=== PATIENT | male | born 1960 | race Caucasian/White ===

== ENCOUNTER 2019-09-10 08:38 | Outpatient (CLI) | payer OTHER, SELFPAY ==
--- NOTE | 2019-09-10 08:50 | XR_ITS ---
WS: [id number] CERVICAL SPINE TECHNIQUE: 3 views of the cervical spine CLINICAL INFORMATION: ARTHRODESIS STATUS, S/P CERVICAL FUSION COMPARISON: None. FINDINGS: Straightening of the normal cervical lordosis. Postoperative changes anterior interbody cervical fusi on C3-C7. Additional posterior element fusion. XR/XR cervical spine 3V* [id number] IMPRESSION: Normal-appearing postoperative ACDF and posterior element fusion C3-C7
== END 2019-09-10 08:39 | disposition home or self-care (01) ==
LOC: RAD 08:42
PROVIDERS: Family Provider Nurse Practitioner; PCP Family Medicine; Visit Provider Neurological Surgery
DX: Z98.1 Arthrodesis status (principal); M43.22 Fusion of spine, cervical region
CPT/HCPCS: 72040

== ENCOUNTER 2020-08-15 09:14 | Outpatient (CLI) | payer OTHER, SELFPAY | END 2020-08-15 09:15 | disposition home or self-care (01) | LOC: WOUND 09:15 | PROVIDERS: PCP Family Medicine; Visit Provider Nurse Practitioner Family | DX: T25.231A Burn of second degree of right toe(s) (nail), initial encounter (principal); X08.8XXA Exposure to other specified smoke, fire and flames, initial encounter | CPT/HCPCS: 11042; 11045; G0463 ==

== ENCOUNTER 2020-08-22 10:55 | Outpatient (CLI) | payer OTHER, SELFPAY | END 2020-08-22 10:56 | disposition home or self-care (01) | LOC: WOUND 10:55 | PROVIDERS: PCP Family Medicine; Visit Provider Nurse Practitioner Family | DX: T25.231A Burn of second degree of right toe(s) (nail), initial encounter (principal); X08.8XXA Exposure to other specified smoke, fire and flames, initial encounter | CPT/HCPCS: 11042 ==

== ENCOUNTER 2020-08-29 09:33 | Outpatient (CLI) | payer OTHER, SELFPAY | END 2020-08-29 09:34 | disposition home or self-care (01) | LOC: WOUND 09:34 | PROVIDERS: PCP Family Medicine; Visit Provider Nurse Practitioner Family | DX: L97.512 Non-pressure chronic ulcer of other part of right foot with fat layer exposed (principal) | CPT/HCPCS: 11042; 87070; 87075; 87205 ==

== ENCOUNTER 2020-09-05 10:43 | Outpatient (CLI) | payer OTHER, SELFPAY | END 2020-09-05 10:44 | disposition home or self-care (01) | LOC: WOUND 10:44 | PROVIDERS: PCP Family Medicine; Visit Provider Nurse Practitioner Family | DX: T25.231A Burn of second degree of right toe(s) (nail), initial encounter (principal); X01.0XXA Exposure to flames in uncontrolled fire, not in building or structure, initial encounter | CPT/HCPCS: 11042 ==

== ENCOUNTER 2020-09-12 09:32 | Outpatient (CLI) | payer OTHER, SELFPAY | END 2020-09-12 09:33 | disposition home or self-care (01) | LOC: WOUND 09:33 | PROVIDERS: PCP Family Medicine; Visit Provider Nurse Practitioner Family | DX: I96 Gangrene, not elsewhere classified (principal); L97.512 Non-pressure chronic ulcer of other part of right foot with fat layer exposed | CPT/HCPCS: 11042 ==

== ENCOUNTER 2020-09-26 10:51 | Outpatient (CLI) | payer OTHER, SELFPAY | END 2020-09-26 10:52 | disposition home or self-care (01) | LOC: WOUND 10:52 | PROVIDERS: PCP Family Medicine; Visit Provider Nurse Practitioner Family | DX: L97.512 Non-pressure chronic ulcer of other part of right foot with fat layer exposed (principal) | CPT/HCPCS: 11042 ==

== ENCOUNTER → 2022-02-01 13:45 | Outpatient (BNVA) | payer MEDICARE, OTHER, SELFPAY | PROVIDERS: PCP Family Medicine; Visit Provider Nurse Practitioner Family | DX: R05.9 Cough, unspecified (principal) | CPT/HCPCS: 71046; 80053; 85025; 87426 ==

== ENCOUNTER → 2022-07-09 11:29 | Outpatient (BNVA) | payer MEDICARE, OTHER, SELFPAY | PROVIDERS: PCP Family Medicine; Visit Provider Nurse Practitioner Family | DX: R50.9 Fever, unspecified (principal); R05.9 Cough, unspecified; R19.7 Diarrhea, unspecified | CPT/HCPCS: 80053; 85025; 87400; 87426 ==